=== PATIENT | female | born 1930 | race Caucasian/White ===

== ENCOUNTER 2017-10-28 11:59 | Emergency (ER) | payer MEDICARE, BC ==
[~2017-10-28] VITALS: Ht 142.2 cm; Wt 71.2 kg
[~2017-10-28 11:59] MED LIST: CARI350 PO; CARV6.25 PO; CEFD300 PO; CEPH500 PO; CHOL10002 PO; CYAN500 PO; FISH1000 PO; HYDACE5 PO; LEVFLO500 PO; LEVSOD125 PO; MULVITMIND PO; OXYACE5T PO; SERT50 PO; SIMV40 PO; SODCHL1 PO; SOMA350 MG PO; SULTRIDS PO; WALKER USE; ZOLP10 PO
[2017-10-28 12:28] LABS: BASOPHILS ABSOLUTE AUTO 0.03 K/mm3 (0.00-0.23); BASOPHILS PERCENT AUTO 0 % (0-2); EOSINOPHILS ABSOLUTE AUTO 0.09 K/mm3 (0.00-0.68); EOSINOPHILS PERCENT AUTO 1 % (0-6); Hematocrit 36.1 % (33.0-51.0); Hemoglobin 12.5 g/dL (11.5-16.0); IMMATURE GRAN ABSOLUTE AUTO 0.01 K/mm3 (0.00-0.10); IMMATURE GRAN PERCENT AUTO 0 % (0-1); LYMPHOCYTES ABSOLUTE AUTO 2.63 K/mm3 (0.84-5.20); LYMPHOCYTES PERCENT AUTO 36 % (21-46); MONOCYTES ABSOLUTE AUTO 0.59 K/mm3 (0.16-1.47); MONOCYTES PERCENT AUTO 8 % (4-13); Mean Corpuscular HGB 34.8 pg (26.0-34.0); Mean Corpuscular HGB Conc 34.6 g/dL (31.5-36.5); Mean Corpuscular Volume 101 fL (80-100); Mean Platelet Volume 10.5 fL (9.1-12.4); NEUTROPHILS PERCENT AUTO 54 % (41-73); Platelet Count 166 K/mm3 (150-400); RDW Coefficient Variation 13.8 % (11.7-14.2); RDW Standard Deviation 51.1 fL (35.1-46.3); Red Blood Cell Count 3.59 M/mm3 (3.80-5.20); White Blood Cell Count 7.25 K/mm3 (4.00-11.30)
[2017-10-28 12:43] LABS: International Normalized Ratio 1.07
[2017-10-28 12:44] LABS: Alanine Aminotransfer (ALT/SGP 26 U/L (12-78); Albumin, Blood 3.8 g/dL (3.4-5.0); Albumin/Globulin Ratio 1.1 (0.8-1.8); Alk Phos 85 U/L (50-136); Anion Gap 10 mmol/L (6-16); Aspartate Aminotrans (AST/SGOT 24 U/L (12-37); Bilirubin, Total 0.4 mg/dL (0.1-1.0); Blood Urea Nitrogen 23 mg/dL (8-24); Bun/Creatinine Ratio 39.7 (12.0-20.0); CO2, Blood 26 mmol/L (21-32); Calcium, Blood 8.7 mg/dL (8.5-10.1); Chloride, Blood 102 mmol/L (98-108); Creatinine, Blood 0.58 mg/dL (0.40-1.00); Globulin, Blood 3.5 g/dL (2.2-4.0); Glomerular Filtration Rate >60 (60-); Glucose, Blood 108 mg/dL (70-99); Sodium, Blood 138 mmol/L (136-145); Total Protein, Blood 7.3 g/dL (6.4-8.2)
[2017-10-28] MEDS ORDERED: HYDROCODON-ACE1 EAC3 PO (12:45)
[2017-10-28] MEDS ORDERED: LOSA25 PO (12:47)
== END 2017-10-28 14:36 | disposition home or self-care (01) ==
LOC: ER 11:59
PROVIDERS: Physician Assistant
DX: S01.81XA Laceration without foreign body of other part of head, initial encounter (principal); S01.21XA Laceration without foreign body of nose, initial encounter; W18.30XA Fall on same level, unspecified, initial encounter; Z79.899 Other long term (current) drug therapy; I10 Essential (primary) hypertension; E78.00 Pure hypercholesterolemia, unspecified
CPT/HCPCS: 12014; 36415; 70450; 80053; 85025; 85610; 96374; 99284-25; J3010

== ENCOUNTER 2018-09-04 13:36 | Emergency (ER) | payer MEDICARE, OTHER ==
[~2018-09-04] VITALS: Ht 142.2 cm; Wt 73.9 kg
[~2018-09-04 13:36] MED LIST changes: +HYDROCODON-ACE1 EAC3 PO; +LOSA25 PO
[2018-09-04] MEDS ORDERED: ASPI81CH PO (14:09)
[2018-09-04] MEDS ORDERED: Norco 5-325 Ta1 EACH PO (15:03)
== END 2018-09-04 15:17 | disposition home or self-care (01) ==
LOC: ER 13:36
DX: S52.572A Other intraarticular fracture of lower end of left radius, initial encounter for closed fracture (principal); S01.81XA Laceration without foreign body of other part of head, initial encounter; W01.198A Fall on same level from slipping, tripping and stumbling with subsequent striking against other object, initial encounter; Z79.899 Other long term (current) drug therapy; Z79.82 Long term (current) use of aspirin; I10 Essential (primary) hypertension
CPT/HCPCS: 12013; 36415; 70450; 73110; 96374-59; 99284-25; J3010

== ENCOUNTER 2018-09-12 17:48 | Emergency (ER) | payer MEDICARE, OTHER ==
[~2018-09-12] VITALS: Ht 142.2 cm; Wt 72.6 kg
[~2018-09-12 17:48] MED LIST changes: +ASPI81CH PO; +Norco 5-325 Ta1 EACH PO
[2018-09-12 18:00] LABS: Source, Urine Clean Catch
[2018-09-12 18:06] LABS: Bilirubin, Urine Neg (Neg); Blood, Urine 2+ (Neg); Glucose Qualitative, Urine Neg (Neg); Ketones, Urine 1+ (Neg); Leukocyte Esterase, Urine 3+ (Neg); Nitrite, Urine Pos (Neg); Protein, Urine Neg (Neg); Specific Gravity, Urine 1.015 (1.003-1.022); Urobilinogen, Urine NORM (Normal); pH, Urine 6.5 (5.0-8.0)
[2018-09-12 18:20] LABS: Color, Urine Pale Yellow (P-Yellow)
[2018-09-12 18:21] LABS: Appearance, Urine Hazy (Clear)
[2018-09-12 18:24] LABS: Bacteria Many /hpf; Red Blood Cells, Urine 0-2 /hpf (0-2)
[2018-09-12 18:25] LABS: Squamous Epithelial Cells Rare /hpf (Few)
[2018-09-12 18:31] LABS: BASOPHILS ABSOLUTE AUTO 0.03 K/mm3 (0.00-0.23); BASOPHILS PERCENT AUTO 1 % (0-2); EOSINOPHILS ABSOLUTE AUTO 0.06 K/mm3 (0.00-0.68); EOSINOPHILS PERCENT AUTO 1 % (0-6); Hematocrit 37.4 % (33.0-51.0); Hemoglobin 12.7 g/dL (11.5-16.0); IMMATURE GRAN ABSOLUTE AUTO 0.01 K/mm3 (0.00-0.10); IMMATURE GRAN PERCENT AUTO 0 % (0-1); LYMPHOCYTES ABSOLUTE AUTO 2.43 K/mm3 (0.84-5.20); LYMPHOCYTES PERCENT AUTO 37 % (21-46); MONOCYTES ABSOLUTE AUTO 0.68 K/mm3 (0.16-1.47); MONOCYTES PERCENT AUTO 10 % (4-13); Mean Corpuscular HGB 35.3 pg (26.0-34.0); Mean Corpuscular Volume 104 fL (80-100); Mean Platelet Volume 10.7 fL (9.1-12.4); NEUTROPHILS ABSOLUTE AUTO 3.38 K/mm3 (1.96-9.15); NEUTROPHILS PERCENT AUTO 51 % (41-73); Platelet Count 230 K/mm3 (150-400); RDW Coefficient Variation 13.2 % (11.7-14.2); RDW Standard Deviation 50.7 fL (35.1-46.3); White Blood Cell Count 6.59 K/mm3 (4.00-11.30)
[2018-09-12 18:44] LABS: Alanine Aminotransfer (ALT/SGP 22 U/L (12-78); Albumin, Blood 3.7 g/dL (3.4-5.0); Albumin/Globulin Ratio 1.1 (0.8-1.8); Alk Phos 81 U/L (50-136); Anion Gap 5 mmol/L (6-16); Aspartate Aminotrans (AST/SGOT 20 U/L (12-37); Bilirubin, Total 0.5 mg/dL (0.1-1.0); Blood Urea Nitrogen 16 mg/dL (8-24); Bun/Creatinine Ratio 29.7 (12.0-20.0); CO2, Blood 30 mmol/L (21-32); Calcium, Blood 9.4 mg/dL (8.5-10.1); Chloride, Blood 101 mmol/L (98-108); Creatinine, Blood 0.54 mg/dL (0.40-1.00); Globulin, Blood 3.3 g/dL (2.2-4.0); Glomerular Filtration Rate >60 (60-); Glucose, Blood 114 mg/dL (70-99); Potassium, Blood 3.5 mmol/L (3.5-5.5); Sodium, Blood 136 mmol/L (136-145)
[2018-09-12] MEDS ORDERED: Keflex500 MG PO (20:21)
== END 2018-09-12 20:42 | disposition home or self-care (01) ==
LOC: ER 17:48
PROVIDERS: Emergency Medicine
DX: N39.0 Urinary tract infection, site not specified (principal); R42 Dizziness and giddiness; Z79.899 Other long term (current) drug therapy; Z79.82 Long term (current) use of aspirin; I10 Essential (primary) hypertension; E78.00 Pure hypercholesterolemia, unspecified
CPT/HCPCS: 80053; 81001; 85025; 87077; 87086; 87186; 93005; 93010; 96361; 96365; 99284-25; J0696; J7030

== ENCOUNTER → 2019-04-10 | Outpatient (CLI) | payer MEDICARE, OTHER ==
[~2019-04-10] MED LIST changes: +Keflex500 MG PO
[2019-04-12 16:08] LABS: Protein, Urine Quantitative 17.2 mg/dL (0.0-11.9)
[2019-04-12 16:09] LABS: Microalbumin, Urine Quant. 33.2 mg/L (0.000-20.000)
== END | disposition home or self-care (01) ==
LOC: OLS 12:47 → LAB SHORT 12:47
PROVIDERS: Internal Medicine Nephrology
DX: N18.2 Chronic kidney disease, stage 2 (mild) (principal); D63.1 Anemia in chronic kidney disease; R80.9 Proteinuria, unspecified
CPT/HCPCS: 81050; 82043; 82570; 84156

== ENCOUNTER 2020-01-11 16:23 | Inpatient (IN) | payer MEDICARE, OTHER ==
[~2020-01-11] VITALS: Ht 142.2 cm; Wt 82.0 kg
[~2020-01-11 16:23] MED LIST changes: -CARV6.25 PO; -LEVSOD125 PO; -LOSA25 PO; -SERT50 PO; -SIMV40 PO
[2020-01-11] MEDS ORDERED: SERT50 PO (18:40)
[2020-01-11] MEDS ORDERED: LEVSOD75 PO (18:40)
[2020-01-11] MEDS ORDERED: Simvastatin40 MG PO (18:40)
[2020-01-11] MEDS ORDERED: CARV6.25 PO (18:41)
[2020-01-11] MEDS ORDERED: LOSA50 PO (18:41)
[2020-01-11] MEDS ORDERED: FURO20 PO (18:42)
[2020-01-11] MEDS ORDERED: POTA10T PO (18:42)
[2020-01-11 20:33] LABS: BASOPHILS ABSOLUTE AUTO 0.03 K/mm3 (0.00-0.23); BASOPHILS PERCENT AUTO 0 % (0-2); EOSINOPHILS ABSOLUTE AUTO 0.04 K/mm3 (0.00-0.68); EOSINOPHILS PERCENT AUTO 0 % (0-6); Hematocrit 33.1 % (33.0-51.0); Hemoglobin 10.8 g/dL (11.5-16.0); IMMATURE GRAN ABSOLUTE AUTO 0.02 K/mm3 (0.00-0.10); IMMATURE GRAN PERCENT AUTO 0 % (0-1); LYMPHOCYTES ABSOLUTE AUTO 1.59 K/mm3 (0.84-5.20); LYMPHOCYTES PERCENT AUTO 18 % (21-46); MONOCYTES ABSOLUTE AUTO 0.62 K/mm3 (0.16-1.47); MONOCYTES PERCENT AUTO 7 % (4-13); Mean Corpuscular HGB Conc 32.6 g/dL (31.5-36.5); Mean Corpuscular Volume 101 fL (80-100); Mean Platelet Volume 10.4 fL (9.1-12.4); NEUTROPHILS ABSOLUTE AUTO 6.77 K/mm3 (1.96-9.15); NEUTROPHILS PERCENT AUTO 75 % (41-73); Platelet Count 166 K/mm3 (150-400); RDW Coefficient Variation 13.5 % (11.7-14.2); RDW Standard Deviation 50.6 fL (35.1-46.3); Red Blood Cell Count 3.27 M/mm3 (3.80-5.20); White Blood Cell Count 9.07 K/mm3 (4.00-11.30)
[2020-01-11 20:48] LABS: International Normalized Ratio 1.08; Prothrombin Time Results 11.5 Sec (9.7-11.5)
[2020-01-11 20:54] LABS: Alanine Aminotransfer (ALT/SGP 16 U/L (12-78); Alk Phos 69 U/L (50-136); Anion Gap 5 mmol/L (6-16); Aspartate Aminotrans (AST/SGOT 16 U/L (12-37); Bilirubin, Total 0.5 mg/dL (0.1-1.0); Blood Urea Nitrogen 25 mg/dL (8-24); Bun/Creatinine Ratio 42.1 (12.0-20.0); CO2, Blood 29 mmol/L (21-32); Calcium, Blood 8.6 mg/dL (8.5-10.1); Chloride, Blood 103 mmol/L (98-108); Creatinine, Blood 0.59 mg/dL (0.40-1.00); Globulin, Blood 2.9 g/dL (2.2-4.0); Glomerular Filtration Rate >60 (60-); Glucose, Blood 116 mg/dL (70-99); Potassium, Blood 4.2 mmol/L (3.5-5.5); Sodium, Blood 137 mmol/L (136-145); Total Protein, Blood 5.9 g/dL (6.4-8.2)
--- NOTE | 2020-01-11 21:23 | NUR ---
PT ARRIVED FROM ER DX: LEFT DISTAL FEMUR FX AND LEFT HUMERAL FX S/P GROUND LEVEL FALL AFTER TRIPPING OVER A RUG AT [facility]. PT ARRIVED AWAKE BUT SLIGHTLY DROWSY. LLE IN POSTERIOR SUGAR TONG SPLING, ABLE TO WIGGLE TOES, DENIES N/T, BRISK CAP REFILL. LUE IN SLING AND WRAPPED WITH TAMARA WRAP, ABLE TO WIGGLE FINGERS, DENIES N/T, BRISK CAP REFILL. STATES MINIMAL PAIN. SONI IN PLACE DRAINING WELL. ORTHO CONSULT CALLED AND WILL SEE IN AM. REVIEWED ORDERS WITH PT. SNACK GIVEN. NPO AT MIDNIGHT. SURGICAL PACKET ON CHART.
[2020-01-11 21:25] LABS: Source, Urine Catheter
[2020-01-11 21:32] LABS: Bilirubin, Urine Neg (Neg); Blood, Urine 2+ (Neg); Glucose Qualitative, Urine Neg (Neg); Ketones, Urine 2+ (Neg); Leukocyte Esterase, Urine 3+ (Neg); Nitrite, Urine Pos (Neg); Protein, Urine 2+ (Neg); Urobilinogen, Urine NORM (Normal)
[2020-01-11 21:37] LABS: Appearance, Urine Hazy (Clear); Color, Urine Yellow (P-Yellow)
[2020-01-11 21:39] LABS: Bacteria Many /hpf; Red Blood Cells, Urine 0-2 /hpf (0-2); Squamous Epithelial Cells Not Seen /hpf (Few); White Blood Cells, Urine TNTC /hpf (0-5)
--- NOTE | 2020-01-11 22:20 | NUR ---
PT DENIES PAIN, CONT PULSE OX IN PLACE, PT ON 1.5L NC. COVID SWAB DONE, BLOOD CONSENT SIGNED. SCD'S ON RLE. CALL LIGHT IN REACH.
--- NOTE | 2020-01-12 05:23 | NUR ---
PT HAS DONE WELL DURING NIGHT. DOES HAVE INTERM BREAKTHROUGH PAIN WHICH IS MANAGED WITH 0.5MG IV DILAUDID. PT RESTING COMFORTABLY AT THIS TIME. PLAN FOR ORTHO EVAL TODAY. PT IS NPO, SURGICAL PACKET ON CHART. COVID DONE AND NEGATIVE. HAD TO PLACE 18G POWERGLIDE IN CARMEN AFTER MULTIPLE FAILED PERIPHERAL ATTEMPTS. WILL REPORT OFF TO NEXT SHIFT. CALL LIGHT IN REACH.
--- NOTE | 2020-01-12 11:22 | NUR ---
PT LEFT ROOM WITH DAYSURGERY TO PREPARE FOR SURGERY
--- NOTE | 2020-01-12 12:20 | NUR ---
PT TRANSFERED TO [facility] VIA BED FROM FLOOR. History, Chart, Medications and Allergies reviewed before start of procedure. Lungs clear T/O to Auscultation. Patient confirms NPO status and agrees with scheduled surgery. Pre-Op teaching done. Pt verbalizes understanding.
--- NOTE | 2020-01-12 12:24 | NUR ---
DILAUDID 1 MG IV NOW GIVEN PER DR. TUBBS V/O AT BEDSIDE.
--- NOTE | 2020-01-12 12:37 | NUR ---
PATIENT GAVE PERMISSION TO GIVE CARE ON 01/12/20
--- NOTE | 2020-01-12 18:31 | NUR ---
SHIFT SUMMARY PT A&OX3, REQUIRED REORIENTATION ONCE AWAKENED POST-OP. S/P ORIF RLE IMMOBILIZER ON, NWB. LUE IN SLING; PLAN FOR SURGERY SAT/SUN PENDING PT STATUS. MMII PO H20 AND JELLO. SONI PATENT & DRAINING YELLOW URINE. H&H IN THE AM; 1 UNIT PRBC'S GIVEN IN O.R. PAIN: 0.5 MG DILAUDID. REPORT PROVIDED TO NICOLÁS HORTA.
[2020-01-13 04:45] LABS: Hematocrit 26.2 % (33.0-51.0); Hemoglobin 8.7 g/dL (11.5-16.0)
--- NOTE | 2020-01-13 06:13 | NUR ---
PATIENT'S PAIN WAS CONTROLLED WITH IV AND PO PAIN MEDICATION. TURNED NEEDED T/O SHIFT. LEFT LEG ELEVATED ON PILLOWS AND LT ARM WITH SPLINT ELEVATED ON PILLOW. LT LEG WITH AGE WRAP AND IMMOBILIZING SPLINT. PATIENT DID HAVE SOME MINOR THROAT DISCOMFORT AND COUGH THAT WAS RELIEVED WITH HOT PEPPERMINT TEA. NO ACUTE CHANGES. CALL LIGHT IN REACH.
--- NOTE | 2020-01-13 18:00 | NUR ---
SHIFT SUMMARY PT A&OX3, VSS, POD1 L ORIF DISTAL FEMUR, SURGICAL DRESSING/TAMARA WRAP/IMMOBILIZER ON, NWB. LUE FX, SPLINT/TAMARA WRAP (POSSIBLE SURGERY THIS WEEKEND PER DR STOREY). PAIN MANAGED WITH 0.5 DILAUDID. MIMI PO, DENIES N&V. PT AND OT EVAL'D PT TODAY AND SAT HER ON SIDE OF BED. SONI PATENT & DRAINING YELLOW URINE. POWERGLIDE CARMEN AND 22G LEFT THUMB. WILL REPORT TO ONCOMING NOC RN.
--- NOTE | 2020-01-14 04:13 | NUR ---
SHIFT SUMMARY: PT POD#1 FOR ORIF TO LLE. NWB. TAMARA WRAP AND IMMPBILIZER IN PLACE. EXTREMITY ELEVATED. LEFT ARM WRAPPED IN ACEWRAP+SPLINT D/T HUMERUS FX. LEFT HAND SWOLLEN. TAMARA WRAP REWRAPPED. ICE PACK APPLIED. PLAN FOR SURGERY TO LEFT ARM ON PER DR. STOREY. PT DESATTING TO LOW 80'S WHILE SLEEPING W/O O2. O2 STABLE ON 2LO2 VIA NC. BIOX IN PLACE. SONI CATHETER IN PLACE DRAINING DARK YELLOW URINE. TOTAL OF 200CC OUT. PT RECIEVING ROCHEPHIN FOR UTI. PLAN TO DC SONI WHEN PT IS AMBULATING PER ORDERS.
[2020-01-14 06:58] LABS: BASOPHILS ABSOLUTE AUTO 0.03 K/mm3 (0.00-0.23); BASOPHILS PERCENT AUTO 0 % (0-2); EOSINOPHILS ABSOLUTE AUTO 0.11 K/mm3 (0.00-0.68); EOSINOPHILS PERCENT AUTO 1 % (0-6); Hematocrit 20.4 % (33.0-51.0); Hemoglobin 6.7 g/dL (11.5-16.0); IMMATURE GRAN ABSOLUTE AUTO 0.04 K/mm3 (0.00-0.10); IMMATURE GRAN PERCENT AUTO 0 % (0-1); LYMPHOCYTES ABSOLUTE AUTO 2.79 K/mm3 (0.84-5.20); LYMPHOCYTES PERCENT AUTO 25 % (21-46); MONOCYTES ABSOLUTE AUTO 1.28 K/mm3 (0.16-1.47); MONOCYTES PERCENT AUTO 12 % (4-13); Mean Corpuscular HGB 32.4 pg (26.0-34.0); Mean Corpuscular HGB Conc 32.8 g/dL (31.5-36.5); Mean Corpuscular Volume 99 fL (80-100); NEUTROPHILS ABSOLUTE AUTO 6.79 K/mm3 (1.96-9.15); NEUTROPHILS PERCENT AUTO 61 % (41-73); Platelet Count 109 K/mm3 (150-400); RDW Standard Deviation 57.7 fL (35.1-46.3); Red Blood Cell Count 2.07 M/mm3 (3.80-5.20); White Blood Cell Count 11.04 K/mm3 (4.00-11.30)
[2020-01-14 07:14] LABS: Alanine Aminotransfer (ALT/SGP 12 U/L (12-78); Albumin, Blood 2.3 g/dL (3.4-5.0); Albumin/Globulin Ratio 0.8 (0.8-1.8); Alk Phos 51 U/L (50-136); Anion Gap 1 mmol/L (6-16); Aspartate Aminotrans (AST/SGOT 23 U/L (12-37); Bilirubin, Total 0.6 mg/dL (0.1-1.0); Blood Urea Nitrogen 21 mg/dL (8-24); Bun/Creatinine Ratio 43.2 (12.0-20.0); CO2, Blood 33 mmol/L (21-32); Calcium, Blood 8.3 mg/dL (8.5-10.1); Chloride, Blood 101 mmol/L (98-108); Creatinine, Blood 0.49 mg/dL (0.40-1.00); Glomerular Filtration Rate >60 (60-); Glucose, Blood 128 mg/dL (70-99); Potassium, Blood 4.2 mmol/L (3.5-5.5); Sodium, Blood 135 mmol/L (136-145); Total Protein, Blood 5.3 g/dL (6.4-8.2)
--- NOTE | 2020-01-14 14:52 | NUR ---
WHILE ROUNDING PT HAD INCREASED RESP RATE WHILE AT REST AND REPORTED FEELING SHORT OF BREATH. LUNG SOUNDS CRACKLY IN THE BASES. O2 SATURATION MAINTAINING AT 97% ON2 LITERS. DR. BECERRA NOTIFIED. WILL GIVE LASIX PER DR. TUBBS.
--- NOTE | 2020-01-14 19:58 | NUR ---
SHIFT SUMMARY PAIN HAS BEEN MANAGED WITH PO PAIN MEDICATION. PT IS POD2 FROM ORIF OF L DISTAL FEMUR. PT HAD LOW H&H TODAY AND RECEIVED 2 UNITS PRBC WHICH SHE TOLERATED WELL. SHE HAD IV LASIX AFTER THE FIRST UNIT OF PRBC FOR CRACKLES IN THE LUNGS AND SHORTNESS OF BREATH. SHORTNESS OF BREATH HAS IMPROVED. URINE OUTPUT HAS IMPROVED. VSS. REPORT GIVEN TO YESSICA HORTA.
--- NOTE | 2020-01-15 05:01 | NUR ---
SHIFT SUMMARY POD3 ORIF ON L FEMUR. PT IS ON BEDREST, REPOSITIONED AND MEDICATED FOR PAIN PER MD ORDER. VSS. PT DENIES DIZZINESS. LUNG SOUNDS ARE CLEAR. PT DENIES SOB. SHE REMAINS ON 1L N/C AT SLEEP WITH 97% SATURATION. EMPTIED UA OUTPUT FROM CATH AT 500 ML THIS MORNING. L ARM/SHOULDER W/ SPLINT, WARM AND CAP REFIL WNL. PT DENIES NUMBNESS AND TINGLING SENSATION. REG DIET MIMI WELL DENIES N/V. PT DENIES PASSING FLATUS. NO BM TODAY. ADMINSTERED PO BOWEL CARE.
[2020-01-15 05:07] LABS: BASOPHILS ABSOLUTE AUTO 0.03 K/mm3 (0.00-0.23); BASOPHILS PERCENT AUTO 0 % (0-2); EOSINOPHILS ABSOLUTE AUTO 0.08 K/mm3 (0.00-0.68); EOSINOPHILS PERCENT AUTO 1 % (0-6); Hematocrit 30.2 % (33.0-51.0); Hemoglobin 10.2 g/dL (11.5-16.0); IMMATURE GRAN ABSOLUTE AUTO 0.04 K/mm3 (0.00-0.10); IMMATURE GRAN PERCENT AUTO 0 % (0-1); LYMPHOCYTES ABSOLUTE AUTO 2.08 K/mm3 (0.84-5.20); LYMPHOCYTES PERCENT AUTO 22 % (21-46); MONOCYTES ABSOLUTE AUTO 1.33 K/mm3 (0.16-1.47); MONOCYTES PERCENT AUTO 14 % (4-13); Mean Corpuscular HGB 31.2 pg (26.0-34.0); Mean Corpuscular HGB Conc 33.8 g/dL (31.5-36.5); Mean Platelet Volume 10.6 fL (9.1-12.4); NEUTROPHILS PERCENT AUTO 63 % (41-73); Platelet Count 101 K/mm3 (150-400); RDW Coefficient Variation 16.3 % (11.7-14.2); Red Blood Cell Count 3.27 M/mm3 (3.80-5.20); White Blood Cell Count 9.66 K/mm3 (4.00-11.30)
[2020-01-15 05:08] LABS: Mean Corpuscular Volume 92 fL (80-100)
[2020-01-15 05:20] LABS: Anion Gap 3 mmol/L (6-16); Blood Urea Nitrogen 17 mg/dL (8-24); Bun/Creatinine Ratio 39.2 (12.0-20.0); CO2, Blood 33 mmol/L (21-32); Calcium, Blood 8.3 mg/dL (8.5-10.1); Chloride, Blood 97 mmol/L (98-108); Creatinine, Blood 0.43 mg/dL (0.40-1.00); Glomerular Filtration Rate >60 (60-); Glucose, Blood 112 mg/dL (70-99); Sodium, Blood 133 mmol/L (136-145)
--- NOTE | 2020-01-15 16:07 | NUR ---
Shift summary Pain controlled with Oxycodone. Guerrero catheter patent and putting out dark yellow urine. VSS. Dressing changed this AM. Aquacel dressing CDI. Patient has been alert, oriented, amd cooperative with care. Patient to be NPO at midnight for L humerus repair tomorrow. Call light within patient reach.
--- NOTE | 2020-01-16 05:39 | NUR ---
SHIFT SUMMARY L DISTAL FEM FX REPAIR POD4, A/O X4, VSS, PAIN WELL CONTROLLED PER EMAR, TOLERATING PO PRIOR TO MIDNIGHT, NPO SINCE MIDNIGHT FOR L HUMERUS FX REPAIR TODAY, ENCOURAGED PT TO DO FOOT PUMPS TO HELP W/ CIRCULATION. CALL LIGHT IN REACH, WILL CONTINUE TO MONITOR AND REPORT TO ONCOMING DAY RN.
--- NOTE | 2020-01-16 16:01 | NUR ---
PT WENT TO THE O.R.
--- NOTE | 2020-01-16 16:18 | NUR ---
Advance directive packet given will follow up for symptom management.
--- NOTE | 2020-01-16 18:31 | NUR ---
SHIFT SUMMARY PT A&OX4, VSS, POD4 LLE ORIF, DRESSING/IMMOBILIZER. PT WENT TO OR FOR L HUMERUS ORIF TODAY. POWERGLIDE CARMEN, 22G R HAND. SONI PATENT & DRAINING YELLOW URINE. PAIN MANAGED WITH 0.5 MG DILAUDID. WILL REPORT TO ONCOMING NOC RN.
--- NOTE | 2020-01-16 19:33 | NUR ---
TELEPHONE CALL WITH SON ERLINDA THAT PT IS DOING WELL AFTER SURGERY.
--- NOTE | 2020-01-16 19:52 | NUR ---
Pt gave verbal permission for me to care for her today.
[2020-01-17 05:38] LABS: BASOPHILS PERCENT AUTO 0 % (0-2); EOSINOPHILS PERCENT AUTO 0 % (0-6); Hematocrit 35.2 % (33.0-51.0); Hemoglobin 11.4 g/dL (11.5-16.0); IMMATURE GRAN ABSOLUTE AUTO 0.03 K/mm3 (0.00-0.10); IMMATURE GRAN PERCENT AUTO 0 % (0-1); LYMPHOCYTES ABSOLUTE AUTO 1.04 K/mm3 (0.84-5.20); LYMPHOCYTES PERCENT AUTO 14 % (21-46); MONOCYTES ABSOLUTE AUTO 0.72 K/mm3 (0.16-1.47); MONOCYTES PERCENT AUTO 10 % (4-13); Mean Corpuscular HGB 31.2 pg (26.0-34.0); Mean Corpuscular HGB Conc 32.4 g/dL (31.5-36.5); Mean Corpuscular Volume 96 fL (80-100); Mean Platelet Volume 10.3 fL (9.1-12.4); NEUTROPHILS ABSOLUTE AUTO 5.72 K/mm3 (1.96-9.15); NEUTROPHILS PERCENT AUTO 76 % (41-73); Platelet Count 158 K/mm3 (150-400); RDW Coefficient Variation 14.7 % (11.7-14.2); RDW Standard Deviation 51.2 fL (35.1-46.3); Red Blood Cell Count 3.65 M/mm3 (3.80-5.20); White Blood Cell Count 7.51 K/mm3 (4.00-11.30)
--- NOTE | 2020-01-17 05:44 | NUR ---
SHIFT SUMMARY L DISTAL FEMUR RX ORIF POD5, L HUMORUS ORIF POD1, A/O X4, BRIEF PERIODS OF TACHYCARDIA/AFIB (HR 142) NEAR BEGINNING OF SHIFT W/ RETURN TO SR AND MOMENTARY BRADYCARDIA (HR [id number]) NEAR THE END, PT ASYMPTOMATIC DURING BRADYCARDIA. TOLERATING JELLO BUT TOO TIRED TO TRY EATING ANYTHING ELSE, SONI IN PLACE AND DRAINING WELL, 2 ATTEMPTS TO HAVE BM W/ NO SUCCESS, ENCOURAGED HYDRATION WITHIN FLUID RESTRICTION LIMITS, WILL INCREASE BOWEL CARE MEASURES ORDERED, PT NON AMBULATORY W/ 2 MAJOR SURGERIES THIS VISIT, PAIN CONTROLLED PER EMAR. CALL LIGHT IN REACH, WILL CONTINUE TO MONITOR AND REPORT TO ONCOMING DAY RN.
[2020-01-17 06:22] LABS: Anion Gap 6 mmol/L (6-16); Blood Urea Nitrogen 18 mg/dL (8-24); Bun/Creatinine Ratio 44.4 (12.0-20.0); CO2, Blood 28 mmol/L (21-32); Calcium, Blood 8.7 mg/dL (8.5-10.1); Chloride, Blood 97 mmol/L (98-108); Creatinine, Blood 0.41 mg/dL (0.40-1.00); Glomerular Filtration Rate >60 (60-); Glucose, Blood 114 mg/dL (70-99); Magnesium, Blood 2.1 mg/dL (1.6-2.4); Potassium, Blood 4.7 mmol/L (3.5-5.5); Sodium, Blood 131 mmol/L (136-145)
--- NOTE | 2020-01-17 15:49 | NUR ---
SHIFT SUMMARY PT A&OX4, VSS, POD5 ORIF DISTAL FEMUR, AQUACEL CDI, IMMOBILIZER, POD1 ORIF HUMERUS, AQUACEL CDI, SLING ON. PAIN MANAGED WITH 5 MG QXY, GIVEN 1X TODAY. MIMI PO, DENIES N&V, MEDS WHOLE. PHYSICAL THERAPY AND OCCUPATION THERAPY WORKED WITH PT TODAY; PT SAT AT SIDE OF BED AND TOLERATED WELL. SONI PATENT & DRAINING YELLOW URINE, STAT LOCK ON, OFF FLOOR. LARGE BOWEL MOVEMENT TODAY/BEDPAN. PT IS DOING WELL TODAY AND READY TO HAVE SONI REMOVED; PLAN TO REMOVE SONI IN AM SINCE PT COULD USE BEDPAN AND POSSIBLY STAND PIVOT TO BSC WITH MAX ASSIST. WILL REPORT TO ONCOMING NOC RN.
--- NOTE | 2020-01-18 06:45 | NUR ---
SHIFT SUMMARY: EMERY IS A&OX4. VSS, NO ACUTE EVENTS OVERNIGHT. IMMOBILIZER TO LLE, SLING TO LUE. POWERGLIDE TO RUE PATENT, DOES NOT DRAW. NAE PATENT, OFF OF FLOOR. SHE IS TOLERATING PO INTAKE WELL. SHE DOES NEED ASSISTANCE TO TURN AND REPOSITION. SHE IS LYING IN BED WITH HER CALL LIGHT IN REACH. WILL REPORT TO DAY SHIFT RN.
--- NOTE | 2020-01-18 11:07 | NUR ---
REPORT PHONED TO JOAQUIN HORTA AT [facility].
--- NOTE | 2020-01-18 12:32 | NUR ---
1230 DISCHARGE WITH TRANSPORT [facility]IA [facility] TO TRANSFER TO [facility]. PTS SON AND PRESENT AT TIME OF TRANSFER
== END 2020-01-18 12:31 | DRG 481 ==
LOC: ER 16:23 → SURS 16:24
PROVIDERS: Internal Medicine; Nurse Practitioner Acute Care; Orthopaedic Surgery; ADMIT Internal Medicine
PROC: 30233N1 Transfusion of Nonautologous Red Blood Cells into Peripheral Vein, Percutaneous Approach (ICD-10-PCS; 2020-01-12)
PROC: 0QSC04Z Reposition Left Lower Femur with Internal Fixation Device, Open Approach (ICD-10-PCS; principal; 2020-01-12 09:00)
PROC: 0PSG04Z Reposition Left Humeral Shaft with Internal Fixation Device, Open Approach (ICD-10-PCS; 2020-01-17)
DX: S72.402A Unspecified fracture of lower end of left femur, initial encounter for closed fracture (principal); S42.202A Unspecified fracture of upper end of left humerus, initial encounter for closed fracture; N39.0 Urinary tract infection, site not specified; D62 Acute posthemorrhagic anemia; E03.9 Hypothyroidism, unspecified; E78.5 Hyperlipidemia, unspecified; F41.8 Other specified anxiety disorders; I10 Essential (primary) hypertension; M81.0 Age-related osteoporosis without current pathological fracture; S72.432A Displaced fracture of medial condyle of left femur, initial encounter for closed fracture; W19.XXXA Unspecified fall, initial encounter; Z96.641 Presence of right artificial hip joint; M54.5 Low back pain; G89.29 Other chronic pain
CPT/HCPCS: 29105; 29505; 36415; 36430; 51702; 73030; 73200; 73560-LT; 73706; 76377; 80048; 80053; 81001; 83735; 85014; 85018; 85025; 85610; 85730; 86850; 86900; 86901; 86923; 87086; 93005; 93010; 94762; 96374-59; 96376-59; 97110; 97162; 97166; 97530; 97535; 99285-25; A9270; A9270-GY; C1713; C1751; J0690; J0696; J1100; J1170; J1940; J2250; J2370; J2405; J2704; J2710; J3010; J7050; J7120; P9016; Q9967; U0004

== ENCOUNTER 2020-05-30 11:15 | Emergency (ER) | payer MEDICARE, OTHER ==
[~2020-05-30] VITALS: Ht 142.2 cm; Wt 76.2 kg
[~2020-05-30 11:15] MED LIST changes: +CARV6.25 PO; +FURO20 PO; +LEVSOD75 PO; +LOSA50 PO; +POTA10T PO; +SERT50 PO; +Simvastatin40 MG PO
[2020-05-30] MEDS ORDERED: Roxicodone5 MG PO (14:12)
== END 2020-05-30 14:25 | disposition home or self-care (01) ==
LOC: ER 11:15
DX: M48.56XA Collapsed vertebra, not elsewhere classified, lumbar region, initial encounter for fracture (principal); I10 Essential (primary) hypertension; E78.5 Hyperlipidemia, unspecified; E03.9 Hypothyroidism, unspecified; Z79.899 Other long term (current) drug therapy
CPT/HCPCS: 96374; 99283-25; A9270; J1170